=== PATIENT | female | born 1975 | race Caucasian/White ===

== ENCOUNTER 2018-09-16 14:18 | Emergency (ER) | payer MEDICAID ==
[~2018-09-16] VITALS: Ht 154.9 cm; Wt 96.2 kg
[2018-09-16 14:33] VITALS: Ht 154.9 cm; Wt 96.2 kg
[2018-09-16 14:56] LABS: microscopic required? NO
[2018-09-16 15:08] LABS: BASOPHIL % 0.3 % (0-2); PLATELET COUNT 386 x10^3mcL (130-400); RED CELL DISTRIBUTION WIDTH 12.7 % (11.5-14.5)
[2018-09-16 15:09] LABS: urine erythrocyte NEGATIVE (NEGATIVE)
[2018-09-16 15:10] LABS: CALCIUM 8.4 mg/dL (8.5-10.1); CARBON DIOXIDE 27.2 mmol/L (21-32); CREATININE SERUM 1.1 mg/dL (0.6-1.0); POTASSIUM SERUM 3.6 mmol/L (3.5-5.1)
[2018-09-16 15:14] LABS: ALBUMIN 3.6 g/dL (3.4-5.0); BILIRUBIN TOTAL 0.32 mg/dL (0.20-1.00); CHOLESTEROL/HDL RATIO 3.7
[2018-09-16 16:41] VITALS: BP 152/60
== END 2018-09-16 16:41 | disposition home or self-care (01) ==
LOC: ED 14:18
PROVIDERS: Specialist
DX: R10.13 Epigastric pain (principal); R10.11 Right upper quadrant pain; R51 Headache; M54.5 Low back pain
CPT/HCPCS: 83880; J1885; J2405; J3010; J3490; J7030; Q0092

== ENCOUNTER 2019-08-22 10:12 | Emergency (ER) | payer MEDICAID ==
[~2019-08-22] VITALS: Ht 157.5 cm; Wt 91.2 kg
[2019-08-22 10:26] VITALS: Ht 157.5 cm; Wt 91.2 kg
[2019-08-22 11:37] VITALS: BP 150/60
== END 2019-08-22 11:37 | disposition home or self-care (01) ==
LOC: ED 10:12
DX: S50.01XA Contusion of right elbow, initial encounter (principal); W18.40XA Slipping, tripping and stumbling without falling, unspecified, initial encounter; Y93.89 Activity, other specified; Y92.89 Other specified places as the place of occurrence of the external cause; Y99.8 Other external cause status

== ENCOUNTER 2020-08-17 15:33 | Emergency (ER) | payer MEDICAID ==
[~2020-08-17] VITALS: Ht 160 cm; Wt 94.3 kg
[2020-08-17 15:45] VITALS: BP 154/80; Ht 160 cm; Wt 94.3 kg
== END 2020-08-17 17:15 | disposition home or self-care (01) ==
LOC: ED 15:33
DX: H11.32 Conjunctival hemorrhage, left eye (principal)